=== PATIENT | female | born 1965 | race Caucasian/White ===

== ENCOUNTER 2018-07-02 08:20 | Outpatient (CLI) | payer OTHER ==
[~2018-07-02] VITALS: Ht 162.6 cm; Wt 113.4 kg
[2018-07-02] VITALS (17 sets, daily range): BP systolic 119–163; BP diastolic 75–96
[2018-07-02] MEDS ORDERED: CYCL10TA2 PO (08:37)
[2018-07-02] MEDS ORDERED: VENL225T PO (08:37)
[2018-07-02] MEDS ORDERED: METF500T16 PO (08:37)
[2018-07-02] MEDS ORDERED: LISI10TA2 PO (08:37)
[2018-07-02 08:56] LABS: BASO % 1 % (0-3); EOS # 0.1 x10^3/uL (0.0-0.7); EOS % 2 % (0-3); HEMATOCRIT 38.4 % (36.0-47.0); HEMOGLOBIN 12.9 g/dL (12.0-15.5); LYMPH # 1.3 x10^3/uL (1.0-4.8); LYMPH % 22 % (24-48); MEAN CORPUSCULAR HEMOGLOBIN 29 pg (25-35); MEAN CORPUSCULAR HGB CONC 34 g/dL (31-37); MEAN CORPUSCULAR VOLUME 85 fL (79-100); MONO # 0.5 x10^3/uL (0.0-1.1); MONO % 9 % (0-9); NEUT % 67 % (31-73); PLATELET COUNT 205 x10^3/uL (140-400); RED BLOOD COUNT 4.53 x10^6/uL (3.50-5.40); RED CELL DISTRIBUTION WIDTH 13.2 % (11.5-14.5)
[2018-07-02 09:12] LABS: CALCIUM 9.2 mg/dL (8.5-10.1); CREATININE 0.9 mg/dL (0.6-1.0); GFR 65.8; POTASSIUM 3.3 mmol/L (3.5-5.1)
[2018-07-02 09:14] LABS: PROTHROMBIN TIME PATIENT 12.1 SEC (11.7-14.0)
[2018-07-02 09:17] LABS: ALBUMIN 3.7 g/dL (3.4-5.0); ALBUMIN/GLOBULIN RATIO 0.9 (1.0-1.7); TOTAL BILIRUBIN 0.3 mg/dL (0.2-1.0); TOTAL PROTEIN 7.8 g/dL (6.4-8.2)
[2018-07-02] MEDS ORDERED: MIDAZOLAM HCL/PF 5 MG/5 ML VIAL. ONE (09:35)
[2018-07-02] MEDS ORDERED: fentaNYL PF VIAL 100 MCG/2 ML VIAL ONE (09:35)
[2018-07-02] MEDS ORDERED: LIDOCAINE WITH 8.4% SOD BICARB 3 ML DISP.SYRIN. ONE (09:36)
[2018-07-02] MEDS ORDERED: LIDOCAINE WITH 8.4% SOD BICARB 3 ML DISP.SYRIN. IJ ONE (10:00)
[2018-07-02] MEDS ORDERED: fentaNYL PF VIAL 100 MCG/2 ML VIAL IV ONE (10:00)
[2018-07-02] MEDS ORDERED: MIDAZOLAM HCL/PF 5 MG/5 ML VIAL. IV ONE (10:00)
[2018-07-02] MEDS ORDERED: GELATIN SPONGE SIZE 12-7MM SPONGE. ONE (10:22)
[2018-07-02 15:02] LABS: BILIRUBIN,URINE NEGATIVE (NEG); CLARITY,URINE CLEAR; COLOR,URINE YELLOW; NITRITE,URINE NEGATIVE (NEG); PH,URINE 5.5; PROTEIN,URINE NEGATIVE (NEG-TRACE); UROBILINOGEN,URINE 0.2 mg/dL (0.2 mg/dL)
[2018-07-02 16:13] LABS: BACTERIA,URINE FEW /HPF (0-FEW); RBC,URINE 20-40 /HPF (0-2); WBC,URINE 0 /HPF (0-4)
[2018-07-02 16:14] LABS: SQUAMOUS EPITHELIAL CELL,UR MOD /LPF
--- NOTE | 2018-07-03 10:07 | RAD ---
CT-guided biopsy, left kidney 07/03/2018 Indication: Acute renal failure Comparison study: None Discussion: The risks and benefits of the procedure were discussed the patient. Informed consent was obtained. A timeout procedure was performed. The left flank was prepped and draped using sterile barrier technique. 1% lidocaine was administered for local anesthesia. Under intermittent CT guidance a 17-gauge guiding needle was advanced to the inferior posterior renal cortex. 3 x 18-gauge core biopsy samples were obtained. Gelfoam embolization of the biopsy tract was performed through the guiding needle as it was removed. Manual pressure was held. Repeat CT demonstrates expected post biopsy changes without significant hemorrhage. The patient tolerated the procedure well remaining hemodynamically stable throughout. The procedures performed under conscious sedation including continuous cardiopulmonary monitoring via a dedicated sedation nurse. Zoyz-rx-jeua sedation time: 30 minutes Impression: CT-guided left renal biopsy PQRS Compliance Statement: One or more of the following individualized dose reduction techniques were utilized for this examination: 1. Automated exposure control 2. Adjustment of the mA and/or kV according to patient size 3. Use of iterative reconstruction technique
[2018-07-03 11:30] LABS: C3 COMPLEMENT 156 mg/dL (82-167); C4 COMPLEMENT 25 mg/dL (14-44)
== END 2018-07-02 14:06 | disposition home or self-care (01) ==
LOC: INTRAD 08:20
PROVIDERS: ATTEND Internal Medicine Nephrology
DX: N17.8 Other acute kidney failure (principal); Z88.2 Allergy status to sulfonamides; Z91.040 Latex allergy status; Z88.8 Allergy status to other drugs, medicaments and biological substances
CPT/HCPCS: 50200; 77012; 80053; 81001; 85025; 85610; 99152; 99153; J2250; J3010

== ENCOUNTER → 2019-05-01 | Day surgery (SDC) | payer OTHER ==
[~2019-05-01] MED LIST: CYAN100016 INJ; CYCL10TA2 PO; IV RINGERS,LACTATED 1000ML 1,000 ML IV SCH; LIDOCAINE 2% PF 5 ML VIAL. ONE; LISI10TA2 PO; METF500T16 PO; OMEP20TA63 PO; PROPOFOL 40 ML IV ONE; VENL225T PO
[2019-05-01 14:25] VITALS: BP 179/92
--- NOTE | 2019-05-06 09:07 | PATHOLOGY ---
[facility] Accession Number: [id number] . 01 Material submitted: . cecum - CECAL MASS BIOPSY . 01 Clinical history: . Anemia . 02 Diagnosis: Colon biopsies, cecal mass: - ADENOCARCINOMA, MODERATELY DIFFERENTIATED, ULCERATED. SEE COMMENT. (JPM:[facility] 05/05/2019) [facility] 05/05/2019 0856 Local . 02 Comment: Sections of the cecal mass biopsy reveal several biopsy segments which show irregular malignant glands which infiltrate an inflamed reactive desmoplastic stroma. The malignant cells show moderate nuclear pleomorphism. Mitotic figures are present. There is focal evidence of ulceration. 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 The case is also examined by Dr. Garvin, who concurs with the diagnosis. Results are reported to Dr. Hardwick on 05/05/2019 at 2:00pm. (JP:[facility] 05/05/2019) . 02 Electronically signed: . Juan Cabrera MD, Pathologist NPI- [id number] . 01 Gross description: . The specimen is received in formalin, labeled "Kay Mckenzie, cecal mass biopsy". Received are nine segments of pale jeong soft tissue ranging in size from 0.2 to 0.7 cm in maximum dimensions. The specimen is submitted entirely in cassette A1. (CAA; 05/02/2019) QAC/QAC 05/02/2019 0945 Local . 02 Pathologist provided ICD-10: C18.0, K63.3 . 02 CPT . 375384 Specimen Comment: A courtesy copy of this report has been sent to [phone], [phone] Specimen Comment: [id number] Specimen Comment: Report sent to / DR COKER Performed at: 01 [facility] [place] [id number] [facility] [address], [place], [place] [id number] MD Jaylen Ruiz MD Phone: [phone] Performed at: 02 [facility] [address] [place], [place] [id number] MD Juan Cabrera MD Phone: [phone]
== END ==
LOC: ENDOS 11:56
PROVIDERS: ATTEND Internal Medicine Gastroenterology
DX: D50.9 Iron deficiency anemia, unspecified (principal); C18.0 Malignant neoplasm of cecum; K63.3 Ulcer of intestine; E11.9 Type 2 diabetes mellitus without complications; I10 Essential (primary) hypertension; Z98.84 Bariatric surgery status; Z98.890 Other specified postprocedural states; Z88.3 Allergy status to other anti-infective agents; Z88.8 Allergy status to other drugs, medicaments and biological substances; Z80.0 Family history of malignant neoplasm of digestive organs; Z98.0 Intestinal bypass and anastomosis status; Z79.84 Long term (current) use of oral hypoglycemic drugs
CPT/HCPCS: 43235; 45380; 88305; J2001; J2704; 43239

== ENCOUNTER → 2019-05-02 | Outpatient (CLI) | payer OTHER ==
[2019-05-01 14:25] VITALS: BP 179/92
[~2019-05-02] MED LIST changes: +CONTRAST GIVEN. MC PRN; +IOHEXOL 240 MG/ML 50ML VIAL. PO ONE; +IOHEXOL 300 MG/ML 100ML VIAL. IV ONE; -IV RINGERS,LACTATED 1000ML 1,000 ML IV SCH; -LIDOCAINE 2% PF 5 ML VIAL. ONE; -PROPOFOL 40 ML IV ONE
--- NOTE | 2019-05-02 13:46 | RAD ---
EXAM: Abdomen and pelvis CT with intravenous contrast. HISTORY: Colon mass. TECHNIQUE: Computed tomographic images of the abdomen and pelvis were obtained following the administration of 75 cc Omnipaque 300 intravenous contrast. Multiplanar reformatting was performed. *One or more of the following individualized dose reduction techniques were utilized for this examination: 1. Automated exposure control. 2. Adjustment of the mA and/or kV according to patient size. 3. Use of iterative reconstruction technique. COMPARISON: None. FINDINGS: Evaluation of the lower thorax is unremarkable. There is lingular and right middle lobe atelectasis or scarring. There is a tiny hiatal hernia. The stomach is surgically absent. There are surgical anastomoses involving the proximal small bowel. There are prominent nonspecific contrast and air-filled loops of small bowel within the left abdomen, without a transition point to suggest obstruction. There is irregular mucosal thickening involving the terminal ileum at the ileocecal valve. This measures approximately 1.4 cm in length. There are multiple prominent surrounding pericecal lymph nodes, the largest of which measures 2.1 cm in long axis. There is distal colonic diverticulosis without evidence of diverticulitis. There are segmental areas of colonic lumen narrowing likely due to peristalsis. No convincing mass is seen. The uterus is surgically absent. The bladder is nearly empty. No suspicious hepatic lesion is seen. There is mild hepatosplenomegaly. The gallbladder is surgically absent. The pancreas and adrenal glands and kidneys are unremarkable. There is scarring within the ventral abdominal wall. There are degenerative changes involving the spine and pelvis. There is no suspicious osseous lesion. IMPRESSION: 1. Masslike thickening of the terminal ileum extending to the ileocecal valve. Given the presence of surrounding pericecal lymphadenopathy, this is concerning for malignancy. Correlate with colonoscopy findings. No additional convincing bowel mucosal lesion is seen. 2. Gastrectomy. There are prominent loops of small bowel within the left abdomen without a transition point to suggest obstruction. 3. Mild hepatosplenomegaly. 4. Tiny hiatal hernia. 5. Colonic diverticulosis. Electronically signed by: Ayala Andrews MD (05/02/2019 1:43 PM) [place] [id number]
== END | disposition home or self-care (01) ==
LOC: CT 10:08
PROVIDERS: ATTEND Internal Medicine Gastroenterology
DX: K57.30 Diverticulosis of large intestine without perforation or abscess without bleeding (principal); K44.9 Diaphragmatic hernia without obstruction or gangrene; J98.4 Other disorders of lung; K63.89 Other specified diseases of intestine; I10 Essential (primary) hypertension; Z79.01 Long term (current) use of anticoagulants; Z90.49 Acquired absence of other specified parts of digestive tract
CPT/HCPCS: 36415; 74177; 82565; Q9966; Q9967